=== PATIENT | female | born 1990 | race Caucasian/White ===

== ENCOUNTER 2017-06-01 09:10 | Emergency (ER) | payer OTHER ==
[2017-06-01 09:25] VITALS: BP 106/31
--- NOTE | 2017-06-01 09:36 | UC ---
Skin Complaint HPI - HPI Summary HPI Summary: She was sleeping and then got up to get some water and then fell on some glass. She has laceration on the left posterior shoulder. Tetanus has been given a few years ago but is unaware of when exactly. She knows it has been within 5-7 years. She has no other medical problems. - History of Current Complaint Chief Complaint: UCLaceration Time Seen by Provider: 06/01/17 09:22 Stated Complaint: LEFT SHOULDER LAC (FALL) Hx Obtained From: Patient Hx Last Menstrual Period: "This past week." ?: No Onset/Duration: Sudden Onset, Lasting Hours Timing: Constant Onset Severity: Moderate Current Severity: Moderate Location: Discrete Aggravating Factor(s): Touch Alleviating Factor(s): Nothing Associated Signs & Symptoms: Negative: Nausea, Vomiting, Fever, Chills, Cough, Drainage, Tenderness, Red Streaks, Joint Swelling - Allergy/Home Medications Allergies/Adverse Reactions: Allergies Allergy/AdvReac Type Severity Reaction Status Date / Time No Known Allergies Allergy Verified 06/01/17 09:19 Home Medications: Home Medications Nuvaring 1 each .ROUTE SEE INSTRUCTIONS 06/01/17 [History] Review of Systems Skin: Other - lacerations left shoulder. Musculoskeletal: Arthralgia - there is neck discomfort. No numbness or weakness. All Other Systems Reviewed And Are Negative: Yes PMH/Surg Hx/FS Hx/Imm Hx Previously Healthy: Yes - Surgical History Surgical History: Yes Surgery Procedure, Year, and Place: Laryngascopy - Family History Known Family History: Positive: Other - Social History Occupation: Employed Part-time Alcohol Use: Rare Substance Use Type: None Smoking Status (MU): Never Smoked Tobacco - Immunization History Most Recent Influenza Vaccination: "I don't do flu shots." Most Recent Tetanus Shot: 3-5 Years Ago Physical Exam Triage Information Reviewed: Yes Appearance: Well-Appearing, No Pain Distress, Well-Nourished Vital Signs: Initial Vital Signs Temp 98.4 F 06/01/17 09:17 Pulse 88 06/01/17 09:17 Resp 16 06/01/17 09:17 BP 106/31 06/01/17 09:17 Pulse Ox 100 06/01/17 09:17 Vital Signs Reviewed: Yes Eyes: Positive: Conjunctiva Clear ENT: Positive: Normal ENT inspection - NO head or neck bruising or signs of discomfort. Neck exam: Normal Neck: Positive: Supple, Nontender, No Lymphadenopathy - No midline neck tenderness. The pain is improved with spurling. She has full rom during our conversation. She walks to x ray without any ataxia. she is wellcoordinated. Respiratory Exam: Normal Respiratory: Positive: Chest non-tender, Lungs clear, Normal breath sounds Cardiovascular: Positive: RRR, No Murmur, Pulses Normal, Brisk Capillary Refill Abdomen Description: Positive: Nontender, No Organomegaly, Soft Musculoskeletal: Positive: Strength Intact, ROM Intact, No Edema Neurological: Positive: Alert, Muscle Tone Normal. Negative: Fatigued, Lethargic, Unresponsive Skin: Positive: Other - left posterior shoulder three parallel lacerations two are into the dermis and one is through into the fat. Laceration Repair - Laceration Repair 3 Description: Linear - There are three parallel lacerations. the left two are sharp and regular. the right most one is irregular. Sterile technique. betadine prep x 3. Laceration Size After Repair: Length (cm) - The three are each 3cm long. the left most one is into the fat and the right most two are into the dermis but not through it. Modified For Repair: No Type Injection: Local Anesthesia Used: 1.0% Lido - with epinephrine. total of 5cc. Additive Used (in ml): Epi Irrigation With Pressure Irrigation Device: Yes Closure Material: Sutures - The two left most lacerations were closed with running subcuticular with 5-0 polysorb. The right most one was closed wiht simple interrupted4-0 monosof for 5 sutures. Closure Method: Single Layer Suture Of: Skin, SQ Course/Dx - Diagnoses Provider Diagnoses: fall. lacerations x 3 Discharge - Discharge Plan Condition: Good Disposition: HOME Patient Education Materials: Care For Your Stitches (ED), Laceration (ED) Forms: *Work Release Referrals: No Primary Care Phys,NOPCP [Primary Care Provider] - Additional Instructions: return here in 8-10 days for suture removal.
[2017-06-01] MEDS ORDERED: Lidocaine 2% W/EPI 1:100,000* 20 ML MDV ONE (09:47)
[2017-06-01] MEDS ORDERED: Lidocaine 2% W/EPI 1:100,000* 20 ML MDV INJ ONE (09:50)
--- NOTE | 2017-06-01 09:52 | RAD ---
HISTORY: Left shoulder laceration COMPARISONS: None VIEWS: 2, frontal and outlet views of the left shoulder FINDINGS: BONE DENSITY: Normal. BONES: There is no displaced fracture. JOINTS: There is no arthropathy. ALIGNMENT: There is no dislocation. SOFT TISSUES: Unremarkable. OTHER FINDINGS: There is no radiopaque foreign body. IMPRESSION: NO ACUTE OSSEOUS INJURY. NO RADIOPAQUE FOREIGN BODY. IF SYMPTOMS PERSIST, RECOMMEND REPEAT IMAGING.
== END 2017-06-01 11:19 | disposition home or self-care (01) ==
LOC: UCCORT 09:10
DX: S41.012A Laceration without foreign body of left shoulder, initial encounter (principal); W01.110A Fall on same level from slipping, tripping and stumbling with subsequent striking against sharp glass, initial encounter
CPT/HCPCS: 12004; 99211; G0463